=== PATIENT | male | born 1980 | race Caucasian/White ===

== ENCOUNTER 2025-06-06 05:30 | Day surgery (SDC) | payer OTHER ==
[2025-06-01 10:48] LABS: MEAN PLATELET VOLUME 6.9 FL (7.4-10.4); PRE OP HEMATOCRIT 39.3 % (42.0-52.0); PRE OP HEMOGLOBIN 13.2 g/dL (14.0-17.9); PRE OP PLATELET COUNT 265 X10'3 (140-440); PRE OP WHITE BLOOD COUNT 7.2 10'3 (4.8-10.8); RED CELL DISTRIBUTION WIDTH 13.2 % (11.5-14.5)
--- NOTE | 2025-06-01 10:59 | ELECTROCARDIOGRAPH REPORT ---
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 Sarahi Nino Measurements Intervals [place] Rate: 86 P: 75 OK: 170 QRS: 86 QRSD: 74 T: 68 QT: 355 QTc: 425 Interpretive Statements Sinus rhythm Electronically Signed On 06-05-2025 7:03:[address] Sarahi Nino Please click the below link to view image of tracing.
[2025-06-01 11:10] LABS: CREATININE 0.78 MG/DL (0.60-1.10); PRE OP ALT 28 U/L (30-65); PRE OP ANION GAP 7 (8-16); PRE OP AST 21 U/L (10-37); PRE OP BILIRUB, TOTAL 0.8 MG/DL (0.0-1.0); PRE OP GLUCOSE 120 MG/DL (70-104); PRE OP POTASSIUM 4.0 MMOL/L (3.4-5.1); PRE OP SODIUM 140 MMOL/L (135-145); TOTAL CARBON DIOXIDE 32.2 MMOL/L (24-32); eGFR > 90 ML/MIN
[2025-06-06] VITALS (10 sets, daily range): BP systolic 111–140; BP diastolic 67–90; PULSE 70–95; RESP 12–16; TEMP 98.7; O2SAT 95–100
[~2025-06-06] VITALS: Ht 182.9 cm; Wt 64.5 kg
[~2025-06-06 05:30] MED LIST: NO HOME MEDS
[2025-06-06] MEDS: ceFAZolin 2gm/dext,iso 50mL 50 ML IV ONE (06:13)
[2025-06-06] MEDS: ringers solution, lacted 1,000 ML IV SCH ×2 (06:13→09:09)
[2025-06-06] MEDS ORDERED: BUPIVAcaine/PF 2.5mg/ml (0.25%) 10ml vial ONE (06:42)
[2025-06-06] MEDS ORDERED: LIDOcaine 1% (10mg/ml)w/preservative inj. 20ml MDV ONE (06:42)
[2025-06-06] MEDS ORDERED: fentaNYL/PF 50MCG/1 ML 2ML syringe IV PRN ×2 (07:20)
[2025-06-06] MEDS ORDERED: ondansetron/PF 4mg/2ml inj IV PRN (07:20)
[2025-06-06] MEDS ORDERED: hydrALAZINE 20mg/ml inj. IV PRN (07:20)
[2025-06-06] MEDS ORDERED: labetalol 20mg/4ml (5mg/ml) syringe IV PRN (07:20)
--- NOTE | 2025-06-06 07:25 | HISTORY AND PHYSICAL ---
History & Physical Providers to CC CC: JORGE NORTON MD ~ History of Present Illness Reason for Admit\Complaint: Ventral hernia, left inguinal hernia History of Present Illness Interval history and physical exam Patient here today for elective repair of his 1 cm ventral hernia as well as symptomatic left inguinal hernia He denies any change in his past medical history since he was seen in the office (please see previous history and physical exam for all pertinent details) He is scheduled for open ventral hernia repair as well as robotic assisted, laparoscopic left, possible right inguinal hernia repair with mesh Allergies: Coded Allergies: No Known Allergies (Unverified , 06/05/25) Home Medications Home Medications Active Reported No Home Medications (Home Med List) Each Exam Vitals: Vital Signs Date Time Temp Pulse Resp B/P (MAP) Pulse Ox O2 Delivery O2 Flow Rate FiO2 06/06/25 06:56 16 95 06/06/25 06:52 95 06/06/25 06:51 98.7 140/83 (102) Room Air General: 44-year-old male in no acute distress Chest: Lungs clear to auscultation bilaterally Cardiovascular: Regular rate and rhythm without murmurs Abdomen: Soft and nondistended Left side marked, consistent with consent for left inguinal hernia repair Problems: (1) Left inguinal hernia (2) Ventral hernia Additional Plan The risks, benefits, and alternatives to a ventral hernia repair, possible mesh as well as robotic assisted, laparoscopic left possible right inguinal hernia repair with mesh were discussed with the patient. Risks include, but are not limited to, bleeding, infection, injury to intra-abdominal structures, hernia recurrence and chronic postoperative pain. Patient verbalized understanding and wishes to proceed with surgery. We will do so today as scheduled JORGE NORTON MD Jun 06, 2025 07:24
[2025-06-06] MEDS ORDERED: midazolam 1 mg/ML 2ml injection ONE (07:26)
[2025-06-06] MEDS ORDERED: ondansetron/PF 4mg/2ml inj ONE (07:26)
[2025-06-06] MEDS ORDERED: fentaNYL/PF 50MCG/1 ML 2ML syringe ONE (07:26)
[2025-06-06] MEDS ORDERED: rocuronium 10mg/ml inj IV ONE (07:26)
[2025-06-06] MEDS ORDERED: dexamethasone sod phosphate 4mg/ml inj. ONE (07:27)
[2025-06-06] MEDS ORDERED: propofol inj 20 ML IV ONE (07:27)
[2025-06-06] MEDS ORDERED: LIDOcaine 2% (20mg/ml) 5ml vial ONE (07:27)
[2025-06-06] MEDS ORDERED: acetaminophen 1,000mg/100ml IV 100 ML IV ONE (07:35)
[2025-06-06] MEDS ORDERED: glycopyrrolate 0.2mg/ml inj ONE (07:36)
[2025-06-06] MEDS: BUPIVAcaine/PF 2.5mg/ml (0.25%) 10ml vial IJ ONE (08:52)
[2025-06-06] MEDS: LIDOcaine 1% 30ml preserv. free vial IJ ONE (08:52)
--- NOTE | 2025-06-06 09:13 | OPERATIVE REPORT ---
Operative Report Providers to CC CC: KRISH NORTON MD ~ Date of Procedure: Jun 06, 2025 Pre-Operative Diagnosis: Left inguinal hernia, ventral hernia Post-Operative Diagnosis SAME as PRE-Op Procedure Performed 1 cm ventral hernia repair Robotic assisted, laparoscopic left inguinal hernia repair with mesh Surgeon: Krish Norton MD FACS [employer] Facility Manager None Anesthesiologist: Jamie Thomson Type of Anesthesia: General Findings: 1 cm fascial defect just above the umbilicus [id number] indirect left inguinal hernia Wound class I Complications None Prosthetics\Implants used: Large left Dextile mesh Estimated Blood Loss: Minimal Specimen Removed: Herniated preperitoneal fat excised and discarded Description of Procedure: Patient was brought to the operating room and identified by the nursing staff and the attending physician. Patient was placed supine and general anesthesia was induced. Patient's abdomen was prepped and draped in standard sterile fashion. Preoperative antibiotics were given. Supraumbilical incision was made to allow for standard [place] entry technique. During dissection, herniated preperitoneal fat was noted in the subcutaneous tissue. This was mobilized down to the level of the fascia where a 1 cm fascial defect was identified. Herniated preperitoneal fat was excised and discarded. The defect edges were freshened and it was used for [place] port placement. Laparoscope was inserted after insufflation. Bilateral, 8.5 mm robotic trochars were placed under laparoscopic guidance following administration of local anesthetic. The da Yehuda robotic arm was docked to the patient and instruments placed intra- abdominally under laparoscopic visualization. The right hemipelvis was examined but it was completely obscured with adhesions between cecum and the anterior abdominal wall. With no clinical evidence of right inguinal hernia, no enterolysis was performed. An indirect inguinal hernia was identified on the left side. Hernia sac was moderate in size. A rent was created in the peritoneum from the median umbilical fold and carried out laterally towards the anterior superior iliac spine. Preperitoneal flap was created and carried down to the symphysis pubis. The retropubic space of Retz[place] was developed and the bladder swept medially. Dissection was carried out laterally until an indirect hernia sac was identified. This was moderate-large in size. Hernia sac was completely dissected away from the cord structures and reduced. The critical view of the myopectineal orifice was achieved. Dissection was carried out laterally to allow space for mesh deployment. A large Dextile mesh and suture was passed intra-abdominally. Mesh was laid in the preperitoneal space covering both indirect, direct, and potential femoral and obturator hernias. Mesh laid without wrinkles or folds. 3 tacking sutures using 0 Ethibond were used to fix the mesh at the symphysis pubis, rectus abdominis, and just anterior to the anterior superior iliac spine. The peritoneal rent was then closed with running, 2/0, absorbable locking suture. [place] were retrieved. Abdomen was deflated and secondary trochars removed. Fascia at the umbilical port site was closed with a combination of 0 Ethibond and 0 Vicryl sutures, thus repairing the hernia defect. Skin incisions were closed with 4-0 Monocryl sutures in a subcuticular fashion. Sterile dressings were applied. Patient was awakened and taken to the postanesthesia care unit in stable condition. Counts repoted as correct: Yes KRISH NORTON MD Jun 06, 2025 09:13
[2025-06-06] MEDS: morphine 4 MG/ML inj SYRINge IV PRN (09:15)
[2025-06-06] MEDS: HYDROcodone/acetaminophen 5mg/325mg tablet PO PRN (09:16)
== END 2025-06-06 11:27 | disposition home or self-care (01) ==
LOC: PAS 05:30
PROVIDERS: ATTEND Surgery
DX: K40.90 Unilateral inguinal hernia, without obstruction or gangrene, not specified as recurrent (principal); K43.9 Ventral hernia without obstruction or gangrene; Z90.49 Acquired absence of other specified parts of digestive tract; Z98.890 Other specified postprocedural states
CPT/HCPCS: 36415; 49591; 49650; 80053; 82948; 85025; 93005; C1781; J0131; J0690; J1100; J2003; J2250; J2270; J2405; J2704; J2710; J3010; J3490; J7030; J7120; S2900; Z7506; Z7508; Z7512; A4215; A4618